=== PATIENT | male | born 1980 | race Hispanic/Latino ===

== ENCOUNTER 2021-08-30 13:22 | Inpatient (IN) | payer OTHER ==
[~2021-08-30] VITALS: Ht 185.4 cm; Wt 107.0 kg
[2021-08-30 13:49] LABS: BASOPHILS % (AUTO) 0.3 % (0.0-5.0); EOSINOPHILS % (AUTO) 0.4 % (0.0-8.0); HEMATOCRIT 48.7 % (42-54); LYMPHOCYTES % (AUTO) 9.7 % (21.0-51.0); MEAN CORPUSCULAR HEMOGLOBIN 29.7 pg (27.0-33.0); MEAN CORPUSCULAR HGB CONC 33.1 g/dL (32.0-36.0); MEAN CORPUSCULAR VOLUME 89.9 fL (79-99); MONOCYTES % (AUTO) 7.1 % (3.0-13.0); NEUTROPHILS % (AUTO) 82.2 % (40.0-77.0); PLATELET COUNT (AUTO) 190 K/uL (130-400); RED BLOOD CELL COUNT(AUTO) 5.42 MIL/uL (4.50-6.20); RED CELL DISTRIBUTION WIDTH 12.3 % (11.0-15.5); WHITE BLOOD COUNT (AUTO) 7.6 K/uL (4.8-10.8)
[2021-08-30] MEDS ORDERED: IBUPROFEN 600 MG TABLET PO ONE (14:00)
[2021-08-30] MEDS ORDERED: ONDANSETRON ODT 4MG TAB SL ONE (14:00)
[2021-08-30 14:07] LABS: ALBUMIN 4.2 g/dL (3.5-5.0); BILIRUBIN,TOTAL 0.7 mg/dL (0.2-1.0); CREATININE 0.9 mg/dL (0.5-1.5); POTASSIUM 4.5 mmol/L (3.5-5.1); TOTAL PROTEIN, SERUM 7.8 g/dL (6.0-8.3)
[2021-08-30 15:05] LABS: APPEARANCE,URINE Clear (CLEAR); BILIRUBIN,URINE Negative (NEGATIVE); COLOR,URINE Yellow (YELLOW); GLUCOSE, URINE (UA) >=1000 mg/dL (NEGATIVE); KETONES,URINE 15 mg/dL (NEGATIVE); LEUKOCYTE ESTERASE ,URINE Negative (NEGATIVE); NITRATE,URINE Negative (NEGATIVE); OCCULT BLOOD,URINE Negative (NEGATIVE); PH,URINE 5.5 (5.0-8.0); PROTEIN,URINE Negative (NEGATIVE); UROBILINOGEN,URINE 0.2 mg/dL (0.2-1.0)
[2021-08-30 15:14] LABS: RBC,URINE 0-1 /HPF (0-1); WBC,URINE 0-1 /HPF (0-1)
[2021-08-30 15:15] LABS: BACTERIA,URINE Rare /HPF (None Seen); SQUAMOUS EPITHELIAL CELL,UR Few /HPF (0-2)
[2021-08-30] MEDS ORDERED: 0.9%NACL 1000ML 1,000 ML IV ONE (16:00)
[2021-08-30] MEDS ORDERED: INSULIN HUMULIN R 100 UNIT/ML 3ML SQ ONE (16:00)
[2021-08-30] MEDS ORDERED: CEFTRIAXONE 1G VIAL IVP ONE (17:30)
[2021-08-30] MEDS ORDERED: DOXYCYCLINE 100MG+NS 250ML IV ONE (17:30)
[2021-08-30] MEDS ORDERED: 0.9% NACL 250ML IV ONE (17:30)
[2021-08-30] MEDS ORDERED: ONDANSETRON 4MG INJ IV PRN (18:00)
[2021-08-30] MEDS: CEFTRIAXONE 1G VIAL IV SCH (18:00)
[2021-08-30] MEDS ORDERED: PHARMACY COMMUNICATION MISC PRN (18:00)
[2021-08-30] MEDS: DOXYCYCLINE 100MG+NS 250ML 250 ML IV SCH (18:00)
[2021-08-30] MEDS ORDERED: LORAZEPAM 2 MG/ML 1 ML VIAL IVP PRN (18:00)
[2021-08-30] MEDS ORDERED: MORPHINE 2 MG SYG IV PRN ×2 (18:00)
[2021-08-30] MEDS ORDERED: M.V.I. IV [ADULT] 10 ML, FOLIC ACID 1 MG, THIAMINE HCL 100 MG in 0.9%NACL 1000ML 1,000 ML IV SCH (18:00)
[2021-08-30] MEDS: IPRATROPIUM/ALBUTEROL SULFATE 3 ML SOLUTION IH SCH ×2 (19:03→23:30)
[2021-08-30] MEDS: ATORVASTATIN 40 MG TABLET PO SCH (20:36)
[2021-08-30] MEDS: HEPARIN 5,000 UNIT VIAL SQ SCH (20:36)
[2021-08-30] MEDS: FAMOTIDINE 20MG TAB PO SCH (20:36)
[2021-08-30] MEDS: INSULIN HUMULIN R 100 UNIT/ML 3ML SQ SCH (21:36)
[2021-08-31] MEDS: LACTATED RINGERS 1000ML 1,000 ML IV SCH ×2 (04:00→14:00)
[2021-08-31] MEDS: IPRATROPIUM/ALBUTEROL SULFATE 3 ML SOLUTION IH SCH ×3 (06:18→18:30)
[2021-08-31 06:38] LABS: BASOPHILS % (AUTO) 0.2 % (0.0-5.0); EOSINOPHILS % (AUTO) 2.7 % (0.0-8.0); HEMATOCRIT 42.9 % (42-54); LYMPHOCYTES % (AUTO) 37.4 % (21.0-51.0); MEAN CORPUSCULAR HEMOGLOBIN 29.5 pg (27.0-33.0); MEAN CORPUSCULAR HGB CONC 33.3 g/dL (32.0-36.0); MEAN CORPUSCULAR VOLUME 88.5 fL (79-99); MONOCYTES % (AUTO) 12.6 % (3.0-13.0); NEUTROPHILS % (AUTO) 46.9 % (40.0-77.0); PLATELET COUNT (AUTO) 161 K/uL (130-400); RED BLOOD CELL COUNT(AUTO) 4.85 MIL/uL (4.50-6.20); RED CELL DISTRIBUTION WIDTH 12.3 % (11.0-15.5)
[2021-08-31 06:51] LABS: HEMOGLOBIN A1C 10.6 % (4.0-6.0)
[2021-08-31 07:01] LABS: PHOSPHORUS 3.2 mg/dL (2.5-4.9); THYROID STIMULATING HORMONE 1.74 uIU/mL (0.36-3.74)
[2021-08-31] MEDS: DOXYCYCLINE 100MG+NS 250ML 250 ML IV SCH ×2 (07:26→18:23)
[2021-08-31] MEDS: INSULIN HUMULIN R 100 UNIT/ML 3ML SQ SCH ×4 (07:27→20:39)
[2021-08-31] MEDS: FAMOTIDINE 20MG TAB PO SCH ×2 (08:46→20:38)
[2021-08-31] MEDS: ASPIRIN 81 MG EC TAB PO SCH (08:46)
[2021-08-31] MEDS: HEPARIN 5,000 UNIT VIAL SQ SCH ×3 (08:47→20:39)
[2021-08-31 10:10] LABS: CREATININE 0.8 mg/dL (0.5-1.5); POTASSIUM 3.9 mmol/L (3.5-5.1)
[2021-08-31] MEDS: CEFTRIAXONE 1G VIAL IV SCH (18:29)
[2021-08-31] MEDS: ATORVASTATIN 40 MG TABLET PO SCH (20:38)
[2021-09-01] MEDS: DOXYCYCLINE 100MG+NS 250ML 250 ML IV SCH (05:47)
[2021-09-01 06:00] VITALS: BP 125/84
[2021-09-01] MEDS ORDERED: METF-444 PO (06:42)
[2021-09-01 06:57] LABS: BASOPHILS % (AUTO) 0.2 % (0.0-5.0); EOSINOPHILS % (AUTO) 1.6 % (0.0-8.0); HEMATOCRIT 45.3 % (42-54); LYMPHOCYTES % (AUTO) 31.4 % (21.0-51.0); MEAN CORPUSCULAR HEMOGLOBIN 29.2 pg (27.0-33.0); MEAN CORPUSCULAR HGB CONC 32.5 g/dL (32.0-36.0); MEAN CORPUSCULAR VOLUME 90.1 fL (79-99); MONOCYTES % (AUTO) 12.8 % (3.0-13.0); NEUTROPHILS % (AUTO) 53.5 % (40.0-77.0); PLATELET COUNT (AUTO) 173 K/uL (130-400); RED BLOOD CELL COUNT(AUTO) 5.03 MIL/uL (4.50-6.20); RED CELL DISTRIBUTION WIDTH 12.3 % (11.0-15.5); WHITE BLOOD COUNT (AUTO) 5.6 K/uL (4.8-10.8)
[2021-09-01] MEDS: INSULIN HUMULIN R 100 UNIT/ML 3ML SQ SCH ×2 (07:01→12:51)
[2021-09-01 07:07] LABS: CREATININE 0.8 mg/dL (0.5-1.5); POTASSIUM 3.6 mmol/L (3.5-5.1)
[2021-09-01 07:30] VITALS: BP 120/80
[2021-09-01] MEDS: FAMOTIDINE 20MG TAB PO SCH (09:37)
[2021-09-01] MEDS: ASPIRIN 81 MG EC TAB PO SCH (09:37)
[2021-09-01] MEDS: HEPARIN 5,000 UNIT VIAL SQ SCH ×2 (09:38→14:00)
[2021-09-01 11:37] VITALS: BP 135/88
[2021-09-01 15:33] VITALS: BP 128/87
[2021-09-01] MEDS ORDERED: AEC81 PO (16:53)
[2021-09-01] MEDS ORDERED: ATOR40TA69 PO (16:53)
== END 2021-09-01 18:25 | disposition home or self-care (01) | DRG 179 ==
LOC: EDH 13:22 → EDHIP 13:23 → 3CH 09-01 03:17
PROVIDERS: ADMIT Hospitalist; ATTEND Hospitalist
DX: J15.6 Pneumonia due to other Gram-negative bacteria (principal); E11.65 Type 2 diabetes mellitus with hyperglycemia; Z20.822 Contact with and (suspected) exposure to COVID-19; F17.210 Nicotine dependence, cigarettes, uncomplicated; G51.0 Bell's palsy; I73.9 Peripheral vascular disease, unspecified; Z91.19 Patient's noncompliance with other medical treatment and regimen
CPT/HCPCS: 36415; 70450; 70551; 71045; 80048; 80053; 80061; 81001; 82550; 82607; 82948; 83036; 83605; 83735; 83874; 83880; 84100; 84443; 84484; 85025; 86308; 87635; 87804; 92522; 92610; 93005; 93880; 94640; 94664; 97039; C9803; G0378; J0696; J1644; J1815; J3411; J3490; J7030